=== PATIENT | male | born 1950 | race Caucasian/White ===

== ENCOUNTER 2017-09-25 13:08 | Emergency (ER) | payer OTHER ==
[~2017-09-25] VITALS: Ht 177.8 cm; Wt 104.3 kg
[2017-09-25] MEDS ORDERED: NASACORT10.8 ML SPRAY (13:24)
[2017-09-25] MEDS ORDERED: PRILOSEC 20 MG20 MG PO (13:24)
[2017-09-25] MEDS ORDERED: ALLEGRA ALLERGY60 MG PO (13:24)
[2017-09-25] MEDS ORDERED: FARXIGA5 MG PO (13:24)
[2017-09-25] MEDS ORDERED: MOBIC7.5 MG PO (13:25)
[2017-09-25] MEDS ORDERED: LIPITOR 20 MG T20 M1 PO (13:25)
[2017-09-25] MEDS ORDERED: METFORMIN HCL500 MG PO (13:25)
[2017-09-25] MEDS ORDERED: COZAAR 25 MG TA25 M2 PO (13:25)
[2017-09-25] MEDS ORDERED: KEFLEX500 M1 PO (14:52)
[2017-09-25 15:03] VITALS: BP 111/71
== END 2017-09-25 15:04 | disposition home or self-care (01) ==
LOC: M.ERS 13:08
DX: S61.012A Laceration without foreign body of left thumb without damage to nail, initial encounter (principal); E11.9 Type 2 diabetes mellitus without complications; I10 Essential (primary) hypertension; W26.8XXA Contact with other sharp object(s), not elsewhere classified, initial encounter; Y93.89 Activity, other specified; Y92.89 Other specified places as the place of occurrence of the external cause; Y99.8 Other external cause status